=== PATIENT | male | born 1990 | race Caucasian/White ===

== ENCOUNTER 2023-01-25 07:48 | Outpatient (CLI) | payer BC, SELFPAY ==
--- NOTE | ~2023-01-25 | XR_ITS ---
EXAMINATION: XR chest 2V 01/25/2023 08:38 INDICATION: Wheezing PROCEDURE: PA and lateral views the chest COMPARISON: No prior studies for comparison. FINDINGS: The lungs are clear. The cardiomediastinal silhouette is within normal limits. There are no pleural effusions. There is no pneumothorax suspected. IMPRESSION: 1: NO ACUTE CARDIOPULMONARY DISEASE. Reviewed, dictated and finalized at location L.
--- NOTE | ~2023-01-25 | XR_ITS ---
EXAMINATION: XR lumbar spine 2-3V DATE: 01/25/2023 08:38 INDICATION: Low back pain. TECHNIQUE: 3 views of lumbar spine were obtained. COMPARISON: None. FINDINGS: Bone alignment is normal. There is mild chronic anterior wedging of T11-L1 vertebral bodies . Intervertebral disc heights are normal. The facet joints are unremarkable. IMPRESSION: 1. No etiology for the patient's symptoms. Reviewed, dictated and finalized at location A.
--- NOTE | ~2023-01-25 | XR_ITS ---
EXAMINATION: XR thoracic spine 3V DATE: 01/25/2023 08:38 INDICATION: Pain in thoracic spine. TECHNIQUE: 3 views of thoracic spine on 4 radiographs were obtained. COMPARISON: None. FINDINGS: There is 6 degrees dextrocurvature of thoracic spine. There is mild chronic anterior wedgin g of T11-L1 vertebral bodies. Intervertebral disc heights are normal. IMPRESSION: 1. No etiology for the patient's symptoms. Reviewed, dictated and finalized at location A.
== END 2023-01-25 07:49 ==
PROVIDERS: PCP Nurse Practitioner Family; Visit Provider Nurse Practitioner Family
DX: M54.50 Low back pain, unspecified (principal); R06.2 Wheezing; M54.6 Pain in thoracic spine
CPT/HCPCS: 71046; 72072; 72100